=== PATIENT | male | born 1990 | race Caucasian/White ===

== ENCOUNTER 2019-02-24 16:26 | Emergency (ER) | payer BC ==
[~2019-02-24] VITALS: Ht 180.3 cm; Wt 80.0 kg
[2019-02-24 16:31] VITALS: BP 133/75; PULSE 108; RESP 20; Ht 180.3 cm; Wt 80.0 kg
[2019-02-24] MEDS ORDERED: ONDANSETRON (ODT) 4 MG TAB ODT STA (16:32)
[2019-02-24] MEDS ORDERED: ONDA4TAB8 PO (16:36)
[2019-02-24] MEDS ORDERED: ONDA4TAB14 PO (16:37)
--- NOTE | 2019-02-24 19:32 | ERD ---
ER Documentation Chief Complaint Chief Complaint PT REPORTS SOB, VOMITING, SHAKY HANDS HPI Patient is a 28-year-old male with no medical problems who presents with nausea and vomiting. He had nausea all day. He said that he felt shaky while at work and he works here at the hospital. He had one episode of vomiting just prior to come to the emergency department and feels much better. He has no fevers. He took Tylenol today. He has no abdominal pain. He has no fevers or sick contacts. ROS All systems reviewed and are negative except as per history of present illness. Medications Home Meds Active Scripts Ondansetron (Ondansetron Odt) 4 Mg Tab.rapdis, 4 MG PO Q6H PRN for NAUSEA AND/OR VOMITING, #30 TAB Prov:PETROS PRIETO MD 02/24/19 Ondansetron Hcl* (Zofran*) 4 Mg Tablet, 4 MG PO Q8H PRN for NAUSEA AND/OR VOMITING, #30 TAB Prov:PETROS PRIETO MD 02/24/19 Allergies Allergies: Coded Allergies: sulfamethoxazole (Verified Allergy, Unknown, 02/24/19) trimethoprim (Verified Allergy, Unknown, 02/24/19) PMhx/Soc History of Surgery: Yes (PILONIDAL CYST REMOVAL 2007) Anesthesia Reaction: No Hx Alcohol Use: No Hx Substance Use: No Hx Tobacco Use: No Smoking Status: Never smoker FmHx Family History: No diabetes Physical Exam Vitals Vital Signs Date Temp Pulse Resp B/P (MAP) Pulse Ox O2 O2 Flow FiO2 Time Delivery Rate 02/24/19 98.7 108 20 133/75 100 16:31 (94) Physical Exam Const: No acute distress Head: Atraumatic Eyes: Normal Conjunctiva ENT: Normal External Ears, Nose and Mouth. Neck: Full range of motion. No meningismus. Resp: Clear to auscultation bilaterally Cardio: Regular rate and rhythm, no murmurs Abd: Soft, non tender, non distended. Normal bowel sounds Skin: No petechiae or rashes Back: No midline or flank tenderness Ext: No cyanosis, or edema Neur: Awake and alert Psych: Normal Mood and Affect Results 24 hrs Current Medications Medications Dose Sig/Geovany Start Time Status Last (Trade) Ordered Route PRN Stop Time Admin Dose Reason Admin Ondansetron 4 mg ONCE STAT 02/24/19 DC 02/24/19 HCl (Zofran ODT 16:32 16:38 Odt) 02/24/19 16:33 Procedures/MDM Patient is a 28-year-old male who presents with nausea and vomiting. The patient was given Zofran. He is otherwise well-appearing. He has a normal abdominal exam without pain. The patient will be discharged. I doubt appendicitis, cholecystitis, pancreatitis, or bowel obstruction. The patient will be given a prescription for Zofran. It is possible he has a viral illness versus food poisoning. Departure Diagnosis: Primary Impression: Vomiting Vomiting type: unspecified Vomiting Intractability: non-intractable Nausea presence: with nausea Qualified Codes: R11.2 - Nausea with vomiting, unspecified Condition: Fair Patient Instructions: Vomiting (6Y-Adult) Referrals: [facility] YOU HAVE RECEIVED A MEDICAL SCREENING EXAM AND THE RESULTS INDICATE THAT YOU DO NOT HAVE A CONDITION THAT REQUIRES URGENT TREATMENT IN THE EMERGENCY DEPARTMENT. FURTHER EVALUATION AND TREATMENT OF YOUR CONDITION CAN WAIT UNTIL YOU ARE SEEN IN YOUR DOCTORS OFFICE WITHIN THE NEXT 1-2 DAYS. IT IS YOUR RESPONSIBILITY TO MAKE AN APPOINTMENT FOR FOLOW-UP CARE. IF YOU HAVE A PRIMARY DOCTOR --you should call your primary doctor and schedule an appointment IF YOU DO NOT HAVE A PRIMARY DOCTOR YOU CAN CALL OUR PHYSICIAN REFERRAL HOTLINE AT IF YOU CAN NOT AFFORD TO SEE A PHYSICIAN YOU CAN CHOSE FROM THE FOLLOWING [facility] [address] [facility] [facility] [address] [facility]. [facility] [address] [facility] [facility] [address] [facility]. [facility] [address] [facility]. [facility]. [address] Additional Instructions: Call your primary care doctor TOMORROW for an appointment during the next 1 WEEK.Tell the engineering secretary that you were referred from this facility.See the doctor sooner or return here if your condition worsens before your appointment time. PETROS PRIETO MD Feb 24, 2019 19:32
== END 2019-02-24 17:00 | disposition home or self-care (01) ==
LOC: FTE 16:26
DX: R11.2 Nausea with vomiting, unspecified (principal)
CPT/HCPCS: 99283